=== PATIENT | female | born 1945 | race Caucasian/White ===

== ENCOUNTER 2018-04-03 12:36 | Observation (INO) ==
[2018-04-03] MEDS ORDERED: *HR* Nalbuphine 10 MG/ML AMPUL IM STA (13:16)
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
[2018-04-03] MEDS ORDERED: Ondansetron ODT 4 MG TAB.RAPDIS SL PRN (16:29)
[2018-04-03] MEDS ORDERED: *HR* HYDROcodone/Acet 5/325 mg TABLET PO PRN (16:29)
[2018-04-03] MEDS ORDERED: *HR* OxyCODONE Immed Rel 5 MG TABLET PO PRN (16:29)
[2018-04-03] MEDS ORDERED: Naloxone 0.4 MG/ML INJ IVP PRN (16:29)
[2018-04-03] MEDS ORDERED: *HR* FentaNYL PATCH 12 MCG PATCH TD SCH (17:30)
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
[2018-04-03] MEDS: Acetaminophen 325 MG TABLET PO SCH (17:52)
[2018-04-03] MEDS: Calcium Acetate 667 MG CAPSULE PO SCH (17:52)
[2018-04-03] MEDS: Methyl Salicylate/Menthol 28 GM TUBE TP SCH (17:53)
[2018-04-03 18:37] LABS: Basophils % 0.2 %; Eosinophils # 0.2 K/mcL (0.0-0.6); Eosinophils % 1.6 %; Hematocrit 30.6 % (35.3-44.9); Hemoglobin 9.8 g/dL (11.5-15.4); Immature Granulocytes % 0.7 % (0-4); Lymphocytes # 1.1 K/mcL (0.6-4.6); Lymphocytes % 7.6 %; Mean Corpuscular Hemoglobin 34.6 pg (28.0-33.3); Mean Corpuscular Volume 108.1 fL (83.0-100.0); Mean Platelet Volume 9.3 fL (9.4-12.4); Monocytes # 1.2 K/mcL (0.0-1.3); Monocytes % 8.4 %; Neutrophils # 11.4 K/mcL (1.6-8.9); Platelet Count 249 K/mcL (140-400); Red Blood Count 2.83 M/mcL (3.82-4.97); Red Cell Distribution Width 12.3 % (11.5-14.5); Segmented Neutrophils % 81.5 %
[2018-04-03 18:52] LABS: Calcium 8.6 mg/dL (8.6-10.3); Potassium 4.9 mEq/L (3.5-5.1)
[2018-04-03] MEDS: *HR* OxyCODONE Immed Rel 5 MG TABLET PO PRN (22:03)
[2018-04-04] MEDS: *HR* OxyCODONE Immed Rel 5 MG TABLET PO PRN ×3 (04:41→15:47)
[2018-04-04 05:01] LABS: Basophils % 0.4 %; Eosinophils # 0.3 K/mcL (0.0-0.6); Eosinophils % 2.5 %; Hematocrit 31.2 % (35.3-44.9); Hemoglobin 9.7 g/dL (11.5-15.4); Immature Granulocytes % 0.4 % (0-4); Lymphocytes % 8.8 %; Mean Corpuscular HGB Conc 31.1 g/dL (31.6-35.5); Mean Corpuscular Volume 109.5 fL (83.0-100.0); Monocytes # 1.1 K/mcL (0.0-1.3); Monocytes % 10.4 %; Neutrophils # 8.5 K/mcL (1.6-8.9); Platelet Count 226 K/mcL (140-400); Red Blood Count 2.85 M/mcL (3.82-4.97); Red Cell Distribution Width 12.1 % (11.5-14.5); Segmented Neutrophils % 77.5 %
[2018-04-04 05:20] LABS: Alanine Aminotransferase 9 Units/L (7-52); Albumin 3.4 g/dL (3.5-5.7); Albumin/Globulin Ratio 1.3 (1.1-2.2); Alkaline Phosphatase 77 Units/L (34-104); Aspartate Amino Transferase 17 Units/L (13-39); BUN/Creatinine Ratio 7 (6-26); Bilirubin,Total 0.3 mg/dL (0.3-1.0); Blood Urea Nitrogen 47 mg/dL (8-23); Calcium 8.7 mg/dL (8.6-10.3); Carbon Dioxide 29 mEq/L (23-29); Chloride 95 mEq/L (98-107); Globulin 2.7 g/dL (2.4-3.5); Glucose 94 mg/dL (70-105); Osmolality,Calculated 290 (280-300); Potassium 5.3 mEq/L (3.5-5.1); Sodium 134 mEq/L (136-145); Total Protein 6.1 g/dL (6.4-8.9); eGFR For African Americans 7 (> 60); eGFR For Non-African Americans 6 (> 60)
[2018-04-04] MEDS: Acetaminophen 325 MG TABLET PO SCH ×3 (05:57→12:43)
[2018-04-04 06:29] LABS: Anisocytosis 1+ (Not Present); Platelet Estimate Normal (Normal)
[2018-04-04] MEDS: Methyl Salicylate/Menthol 28 GM TUBE TP SCH (08:31)
[2018-04-04] MEDS: Calcium Acetate 667 MG CAPSULE PO SCH ×3 (08:33→16:47)
[2018-04-04] MEDS ORDERED: amLODIPine 5 MG TABLET PO SCH (09:00)
[2018-04-04] MEDS ORDERED: Letrozole 2.5 MG TABLET PO SCH (09:00)
[2018-04-04 10:04] VITALS: BP 130/60
[2018-04-04 11:05] LABS: % Iron Saturation 30 % (15-50); Iron 60 mcg/dL (50-170); Transferrin 145 mg/dL (203-362)
[2018-04-04 11:29] LABS: Folate 5.9 ng/mL (3.0-16.0)
[2018-04-04 11:45] LABS: Ferritin > 1500 ng/mL (10-120)
[2018-04-04] MEDS ORDERED: Ondansetron ODT 4 MG TAB.RAPDIS SL PRN (12:25)
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
== END 2018-04-04 17:27 | disposition home or self-care (01) ==
LOC: EMEROOPIK 12:36 → INPPIK 12:36
PROVIDERS: ADMIT Internal Medicine; ATTEND Internal Medicine